=== PATIENT | female | born 1950 | race Caucasian/White ===

== ENCOUNTER 2024-02-10 08:05 | Emergency (ER) | payer MEDICARE ==
[2024-02-10] MEDS: Ondansetron 4 MG/2 ML SDV IVPUSH ONE (08:40)
[2024-02-10] MEDS: HYDROmorphone 2 MG/ML Syringe IVPUSH ONE (08:45)
[2024-02-10 08:48] LABS: BASOPHILS ABSOLUTE AUTO 0.04 K/uL (0.02-0.10); BASOPHILS PERCENT AUTO 0.2 % (0.0-0.5); HEMATOCRIT 42.3 % (37.0-47.0); HEMOGLOBIN 14.1 g/dL (11.5-16.5); LYMPHOCYTES ABSOLUTE AUTO 0.87 K/uL (1.50-4.00); LYMPHOCYTES PERCENT AUTO 4.9 % (20.0-40.0); MEAN CORPUSCULAR HGB CONC 33.3 g/dL (31.0-35.0); MEAN CORPUSCULAR VOLUME 93 fL (76-96); MEAN PLATELET VOLUME 9.8 fL (6.0-10.0); MONOCYTES PERCENT AUTO 4.5 % (3.0-10.0); NEUTROPHILS ABSOLUTE AUTO 16.01 K/uL (2.00-7.50); NEUTROPHILS PERCENT AUTO 90.4 % (45.0-70.0); PLATELET COUNT,PLT 263 K/uL (150-500); RED BLOOD CELL COUNT 4.55 M/uL (3.80-5.80); WHITE BLOOD CELL COUNT,WBC 17.7 K/uL (4.0-11.0)
[2024-02-10 09:12] LABS: C-REACTIVE PROTEIN 126.2 mg/L (<5.0)
[2024-02-10 09:16] LABS: A/G RATIO 0.9 (0.8-2.0); ALBUMIN 3.1 g/dL (3.4-5.0); ANION GAP 11.5 mmol/L (5.0-15.0); BILIRUBIN TOTAL 1.1 mg/dL (0.0-1.0); BUN/CREATININE RATIO 15.7 (6-25); CARBON DIOXIDE,CO2 25.8 mmol/L (21.0-32.0); CREATININE 0.89 mg/dL (0.55-1.02); EST CRCL DRUG DOSING (CG) 45.55 mL/min; POTASSIUM,K 3.3 mmol/L (3.5-5.1); PROTEIN TOTAL,TP 6.6 g/dL (6.4-8.2)
[2024-02-10] MEDS: Sodium Chloride 0.9% 1,000 ML IV ONE (09:17)
[2024-02-10] MEDS ORDERED: Sodium Chloride 0.9% 10 ML Syringe FLUSH PRN (09:26)
[2024-02-10] MEDS: Potassium Chloride Riders 10 MEQ in Premix Bag 1 BAG IV ONE (09:28)
[2024-02-10] MEDS: Ondansetron 4 MG/2 ML SDV ONE (10:22)
[2024-02-10 10:28] LABS: APPEARANCE,URINE CLEAR (CLEAR); BILIRUBIN,URINE SMALL (NEGATIVE); COLOR,URINE YELLOW; GLUCOSE,URINE NEGATIVE (NEGATIVE); KETONES,URINE 40 mg/dL (NEGATIVE); PROTEIN,URINE 30 mg/dL (NEGATIVE)
[2024-02-10 10:29] LABS: LEUKOCYTE ESTERASE,URINE SMALL (NEGATIVE); NITRITE,URINE NEGATIVE (NEGATIVE); OCCULT BLOOD,URINE TRACE-LYSED (NEGATIVE); RBC,URINE 0-5 /HPF; UROBILINOGEN,URINE 0.2 E.U./dL (0.2-1.0)
[2024-02-10 10:30] LABS: AMORPHOUS SEDIMENT,URINE FEW /HPF; MUCUS,URINE FEW /HPF; SQUAMOUS EPITHELIAL CELLS,UR FEW /HPF
[2024-02-10] MEDS: cefTRIAXone 2 GM in Sodium Chloride 0.9% 100 ML IV ONE (10:53)
[2024-02-10] MEDS: cefOXitin 2 GM in Sodium Chloride 0.9% 50 ML IV ONE (11:04)
== END 2024-02-10 11:30 ==
LOC: LB.ED 08:05
DX: K35.200 Acute appendicitis with generalized peritonitis, without perforation or abscess (principal); E66.9 Obesity, unspecified; Z90.710 Acquired absence of both cervix and uterus; Z88.8 Allergy status to other drugs, medicaments and biological substances; Z68.31 Body mass index [BMI] 31.0-31.9, adult
CPT/HCPCS: 36415; 74176; 80053; 81001; 83605; 83690; 85025; 86140; 96365; 96367; 96375; 96376; 99285-25; J0696; J1170; J2405; J3480; J3490; J7030